=== PATIENT | female | born 1955 | race Caucasian/White ===

== ENCOUNTER → 2016-04-28 | Outpatient (CLI) | payer BC, OTHER | LOC: RAD 09:26 | PROVIDERS: ATTEND Physician Assistant Medical | DX: M25.552 Pain in left hip (principal) | CPT/HCPCS: 73522 ==

== ENCOUNTER → 2016-10-01 | Outpatient (CLI) | payer BC, OTHER ==
--- NOTE | 2016-10-01 14:42 | RADIOLOGY REPORT (SQ) ---
EXAM DESCRIPTION: CT ABD/PELVIS COMBO COMPLETED DATE/TIME: 10/01/2016 12:22 pm REASON FOR STUDY: GROSS HEMATURIA R31.0 GROSS HEMATURIA COMPARISON: None. TECHNIQUE: CT scan of the abdomen and pelvis performed with and without intravenous contrast, and wi thout oral contrast. Contrasted imaging performed helical scanning technique and dynamic intravenous contrast injection. Images reviewed with lung, soft tissue, and bone windows. Reconstructed coronal a nd sagittal MPR images reviewed. Delayed images for evaluation of the urinary system also acquired. A ll images stored on PACS. All CT scanners at this facility use dose modulation, iterative reconstruction, and/or weight based d osing when appropriate to reduce radiation dose to as low as reasonably achievable (ALARA). [facility]: Dose Right [facility]: CareDose [facility]: Dose Right [facility]: Teradose 4D [facility]: Webcom CONTRAST TYPE AND DOSE: contrast/concentration: Isovue 370.00 mg/ml; Total Contrast Delivered: 79.0 ml; Total Saline Delivered: 68.1 ml RENAL FUNCTION: Creatinine 0.7 RADIATION DOSE: Up-to-date CT equipment and radiation dose reduction techniques were employed. CTDIv ol: 9.9 - 10.6 mGy. DLP: 1592 mGy-cm. . LIMITATIONS: None. FINDINGS: NON-CONTRASTED IMAGING: No significant renal or bladder calcifications. No other significa nt organ calcifications. POST-CONTRASTED IMAGING: LOWER CHEST: No significant findings. No nodules or infiltrates. LIVER: Normal size. No masses or dilated ducts. SPLEEN: Normal size. No focal lesions. PANCREAS: No masses. No significant calcifications. No adjacent inflammation or peripancreatic fluid collections. Pancreatic duct not dilated. GALLBLADDER: No identified stones by CT criteria. No inflammatory changes to suggest cholecystitis. ADRENAL GLANDS: No significant masses or asymmetry. RIGHT KIDNEY AND URETER: No solid masses. No significant calcifications. No hydronephrosis or hyd roureter. LEFT KIDNEY AND URETER: No solid masses. No significant calcifications. No hydronephrosis or hydr oureter. AORTA AND VESSELS: No aneurysm. No dissection. Renal arteries, SMA, celiac without stenosis. RETROPERITONEUM: No retroperitoneal adenopathy, hemorrhage or masses. BOWEL AND PERITONEAL CAVITY: No masses or inflammatory changes. No free fluid or peritoneal masses. APPENDIX: Surgically absent. PELVIS: The uterus is absent. The urinary bladder is normal. There is no adnexal mass or fluid elan ection. ABDOMINAL WALL: No masses. No hernias. BONES: Marked degenerative disc changes and spondylosis are present in the lumbar spine. Spinal sten osis is present in the mid lumbar spine. OTHER: No other significant finding. IMPRESSION: 1. No urinary pathology is appreciated. There is no finding that explains hematuria. 2. There are extensive degenerative changes in the lumbar spine as described. TECHNICAL DOCUMENTATION: JOB ID: [id number] Quality ID # [id number]: Final reports with documentation of one or more dose reduction techniques (e.g., Au tomated exposure control, adjustment of the mA and/or kV according to patient size, use of iterative reconstruction technique) 2010 [employer]- All Rights Reserved
== END ==
LOC: RAD 11:19
PROVIDERS: ATTEND Urology
DX: R31.0 Gross hematuria (principal)
CPT/HCPCS: 74178; 82565

== ENCOUNTER 2017-10-06 09:12 | Emergency (ER) | payer BC, OTHER ==
--- NOTE | 2017-10-06 09:46 | ER Document Report ---
ED Medical Screen (RME) - General Chief Complaint: High Blood Pressure Stated Complaint: BLOOD PRESSURE ISSUES Time Seen by Provider: 10/06/17 09:35 Notes: RAPID MEDICAL EVALUATION DISCLOSURE I have seen this patient as part of a Rapid Medical Evaluation and, if applicable, placed any initially appropriate orders. The patient will be seen and fully evaluated, including a full history and physical exam, by a provider ( in Main ED or Fast Track) when a room becomes available. 61-year-old female here with complaints of sweating ongoing since yesterday. She has been sweating constantly and cannot figure out why. She does not have any chest pain shortness of breath lightheadedness nausea vomiting diarrhea abdominal pain. She does have some right low back pain that is chronic and unchanged from baseline. She was at work today and was noted to be sweating by 1 of her coworkers and was sent down to be evaluated. She has no recent changes in medications. Today she noted that her blood pressure was bit elevated in the 170s but has not had any changes in her blood pressure medication. She has not missed any doses of her blood pressure medication. EXAM CTAB RRR TRAVEL OUTSIDE OF THE [place] IN LAST 30 DAYS: No - Related Data Allergies/Adverse Reactions: Penicillins Allergy (Verified 06/25/13 18:29) RASH Sulfa (Sulfonamide Antibiotics) Allergy (Verified 06/25/13 18:29) RASH Past Medical History - Past Medical History Cardiac Medical History: Reports: Hx Hypertension Denies: Hx Heart Attack Pulmonary Medical History: Denies: Hx Asthma Neurological Medical History: Denies: Hx Cerebrovascular Accident, Hx Seizures Endocrine Medical History: Reports: Hx Diabetes Mellitus Type 1, Hx Diabetes Mellitus Type 2 GI Medical History: Reports: Hx Gastroesophageal Reflux Disease. Denies: Hx Hepatitis, Hx Hiatal Hernia, Hx Ulcer Musculoskeltal Medical History: Reports Hx Arthritis Infectious Medical History: Denies: Hx Hepatitis Past Surgical History: Reports: Hx Section, Hx Hysterectomy, Hx Orthopedic Surgery - R hand/carpel tunnel,. Denies: Hx Mastectomy, Hx Open Heart Surgery, Hx Pacemaker - Immunizations Hx Diphtheria, Pertussis, Tetanus Vaccination: Yes Physical Exam - Vital signs Vitals: Temp Pulse Resp BP Pulse Ox 98.3 F 88 17 147/87 H 97 10/06/17 09:32 10/06/17 09:32 10/06/17 09:32 10/06/17 09:32 10/06/17 09:32 Course - Vital Signs Vital signs: Temp Pulse Resp BP Pulse Ox 98.3 F 88 17 147/87 H 97 10/06/17 09:32 10/06/17 09:32 10/06/17 09:32 10/06/17 09:32 10/06/17 09:32 Doctor's Discharge - Discharge Referrals: GABY TOTH MD [Primary Care Provider] - Follow up as needed
[2017-10-06 10:09] LABS: ABSOLUTE BASOPHILS # (AUTO) 0.1 10^3/uL (0.0-0.2); ABSOLUTE EOSINOPHILS # (AUTO) 0.1 10^3/uL (0.0-0.6); ABSOLUTE LYMPHOCYTES (AUTO) 1.2 10^3/uL (0.5-4.7); ABSOLUTE MONOCYTES (AUTO) 0.6 10^3/uL (0.1-1.4); ABSOLUTE NEUT (AUTO) 5.3 10^3/uL (1.7-8.2); BASOPHILS % (AUTO) 1.1 % (0-2); EOSINOPHILS % (AUTO) 1.6 % (0-6); HEMATOCRIT 36.9 % (36.0-47.0); HEMOGLOBIN 12.4 g/dL (12.0-15.5); LYMPHOCYTES % (AUTO) 16.5 % (13-45); MEAN CORPUSCULAR HEMOGLOBIN 27.9 pg (27.0-33.4); MEAN CORPUSCULAR HGB CONC 33.7 g/dL (32.0-36.0); MEAN CORPUSCULAR VOLUME 83 fl (80-97); MONOCYTES % (AUTO) 7.8 % (3-13); PLATELET COUNT 379 10^3/uL (150-450); RED BLOOD COUNT 4.46 10^6/uL (3.72-5.28); RED CELL DISTRIBUTION WIDTH 14.1 % (11.5-14.0); TOTAL CELLS COUNTED % (AUTO) 100 %; WHITE BLOOD COUNT 7.2 10^3/uL (4.0-10.5)
[2017-10-06 10:20] LABS: APPEARANCE,URINE CLOUDY; BILIRUBIN,URINE NEGATIVE (NEGATIVE); GLUCOSE, URINE NEGATIVE (NEGATIVE); KETONES,URINE TRACE mg/dL (NEGATIVE); LEUKOCYTE ESTERASE,URINE LARGE (NEGATIVE); NITRITE,URINE NEGATIVE (NEGATIVE); PROTEIN,URINE 30 mg/dL (NEGATIVE); URINE SPECIFIC GRAVITY 1.024; UROBILINOGEN,URINE NEGATIVE mg/dL (<2.0)
[2017-10-06 10:21] LABS: COLOR,URINE YELLOW
[2017-10-06 10:27] LABS: ALANINE AMINOTRANSFERASE 31 U/L (9-52); ALBUMIN 4.6 g/dL (3.5-5.0); ALKALINE PHOSPHATASE 166 U/L (38-126); ANION GAP 14 (5-19); ASPARTATE AMINO TRANSFERASE 24 U/L (14-36); BILIRUBIN,DIRECT 0.3 mg/dL (0.0-0.4); BILIRUBIN,TOTAL 0.6 mg/dL (0.2-1.3); BLOOD UREA NITROGEN 18 mg/dL (7-20); CARBON DIOXIDE 30 mmol/L (22-30); CHLORIDE 98 mmol/L (98-107); GLUCOSE 294 mg/dL (75-110); PHOSPHORUS 3.7 mg/dL (2.5-4.5); POTASSIUM 5.4 mmol/L (3.6-5.0); SODIUM 141.7 mmol/L (137-145); TOTAL PROTEIN 7.8 g/dL (6.3-8.2)
--- NOTE | 2017-10-06 10:40 | RADIOLOGY REPORT (SQ) ---
EXAM DESCRIPTION: CHEST 2 VIEWS COMPLETED DATE/TIME: 10/06/2017 10:22 am REASON FOR STUDY: diaphoresis high BP COMPARISON: None. EXAM PARAMETERS: NUMBER OF VIEWS: two views TECHNIQUE: Digital Frontal and Lateral radiographic views of the chest acquired. RADIATION DOSE: NA LIMITATIONS: none FINDINGS: LUNGS AND PLEURA: No opacities, masses or pneumothorax. No pleural effusion. MEDIASTINUM AND HILAR STRUCTURES: No masses or contour abnormalities. HEART AND VASCULAR STRUCTURES: Heart normal size. No evidence for failure. BONES: Thoracolumbar scoliosis. HARDWARE: None in the chest. OTHER: No other significant finding. IMPRESSION: NO ACUTE RADIOGRAPHIC FINDING IN THE CHEST. TECHNICAL DOCUMENTATION: JOB ID: [id number] [employer]- All Rights Reserved Reading location - IP/workstation name: [email or web address]
[2017-10-06] MEDS ORDERED: NORMAL SALINE 1000 ML 1,000 ML IV ONE (11:14)
--- NOTE | 2017-10-06 11:19 | ER Document Report ---
ED General - General TRAVEL OUTSIDE OF THE [place] IN LAST 30 DAYS: No <CASI LUCIANO - Last Filed: 10/06/17 13:30> <ILAN HEATH - Last Filed: 10/06/17 13:41> - General Chief Complaint: High Blood Pressure Stated Complaint: BLOOD PRESSURE ISSUES Time Seen by Provider: 10/06/17 09:35 Notes: 61-year-old female here with complaints of sweating ongoing since yesterday. She has been sweating constantly and cannot figure out why. She does not have any chest pain shortness of breath lightheadedness nausea vomiting diarrhea abdominal pain. She does have some right low back pain that is chronic and unchanged from baseline. She was at work today and was noted to be sweating by 1 of her coworkers and was sent down to be evaluated. She has no recent changes in medications. Today she noted that her blood pressure was bit elevated in the 170s but has not had any changes in her blood pressure medication. She has not missed any doses of her blood pressure medication. ( ILAN HEATH) - Related Data Allergies/Adverse Reactions: Penicillins Allergy (Verified 06/25/13 18:29) RASH Sulfa (Sulfonamide Antibiotics) Allergy (Verified 06/25/13 18:29) RASH Past Medical History - Social History Smoking Status: Never Smoker Chew tobacco use (# tins/day): No Frequency of alcohol use: None Drug Abuse: None Family History: Reviewed & Not Pertinent Patient has suicidal ideation: No Patient has homicidal ideation: No - Past Medical History Cardiac Medical History: Reports: Hx Hypertension Denies: Hx Heart Attack Pulmonary Medical History: Denies: Hx Asthma, Hx Tuberculosis Neurological Medical History: Denies: Hx Cerebrovascular Accident, Hx Seizures Endocrine Medical History: Reports: Hx Diabetes Mellitus Type 1, Hx Diabetes Mellitus Type 2 Renal/ Medical History: Denies: Hx Peritoneal Dialysis GI Medical History: Reports: Hx Gastroesophageal Reflux Disease. Denies: Hx Hepatitis, Hx Hiatal Hernia, Hx Ulcer Musculoskeltal Medical History: Reports Hx Arthritis Infectious Medical History: Denies: Hx Hepatitis Past Surgical History: Reports: Hx Section, Hx Hysterectomy, Hx Orthopedic Surgery - R hand/carpel tunnel,. Denies: Hx Mastectomy, Hx Open Heart Surgery, Hx Pacemaker - Immunizations Hx Diphtheria, Pertussis, Tetanus Vaccination: Yes <CASI LUCIANO - Last Filed: 10/06/17 13:30> Review of Systems <CASI LUCIANO - Last Filed: 10/06/17 13:30> <ILAN HEATH - Last Filed: 10/06/17 13:41> - Review of Systems Notes: See history of present illness for pertinent positive review of systems; otherwise all review of systems have been reviewed and are negative (ILAN HEATH) Physical Exam <CASI LUCIANO - Last Filed: 10/06/17 13:30> <ILAN HEATH - Last Filed: 10/06/17 13:41> - Vital signs Vitals: Temp Pulse Resp BP Pulse Ox 98.3 F 88 17 147/87 H 97 10/06/17 09:32 10/06/17 09:32 10/06/17 09:32 10/06/17 09:32 10/06/17 09:32 - Notes Notes: PHYSICAL EXAMINATION: GENERAL: Well-appearing and in no acute distress. HEAD: Atraumatic, normocephalic. EYES: Pupils equal round and reactive to light, extraocular movements intact, sclera anicteric, conjunctiva are normal. ENT: nares patent, oropharynx clear without exudates. Moist mucous membranes. NECK: Normal range of motion, supple without lymphadenopathy LUNGS: CTAB and equal. No wheezes rales or rhonchi. HEART: Regular rate and rhythm without murmurs ABDOMEN: Soft, no tenderness. No facial grimacing/wincing upon palpation. No guarding, no rebound. EXTREMITIES: Normal range of motion, no pitting edema. No cyanosis. No appreciable right lower back TTP NEUROLOGICAL: Cranial nerves grossly intact. Normal sensory/motor exams. PSYCH: Normal mood, normal affect. SKIN: Warm, Dry, normal turgor, no rashes or lesions noted (ILAN HEATH) Course - Laboratory Result Diagrams: 10/06/17 09:45 10/06/17 09:45 <CASI LUCIANO - Last Filed: 10/06/17 13:30> - Laboratory Result Diagrams: 10/06/17 09:45 10/06/17 09:45 <ILAN HEATH - Last Filed: 10/06/17 13:41> - Re-evaluation Re-evalutation: 10/06/17 13:39 MEDICAL DECISION MAKING: Results reviewed there is no leukocytosis hemoglobin is normal Electrolytes show mild hyperglycemia that has improved and now 170s after a bag of fluids Potassium is 5.4 however no significant peaked T waves on the EKG though we will give a single dose of Kayexalate here Urinalysis does show bacteria and leukocyte esterase so I will treat her with Macrobid I discussed the findings with the patient and instructed her follow-up PCP next day or few Patient understands and agrees to the plan of care (ILAN HEATH) - Vital Signs Vital signs: Temp Pulse Resp BP Pulse Ox 98.3 F 87 18 142/72 H 99 10/06/17 09:32 10/06/17 12:58 10/06/17 12:58 10/06/17 12:58 10/06/17 12:58 - Laboratory Laboratory results interpreted by me: 10/06/17 10/06/17 10/06/17 09:45 09:45 09:50 RDW 14.1 H Potassium 5.4 H Glucose 294 H Alkaline Phosphatase 166 H Urine Protein 30 H Urine Ketones TRACE H Ur Leukocyte Esterase LARGE H Urine Ascorbic Acid 40 H Discharge <CASI LUCIANO - Last Filed: 10/06/17 13:30> <ILAN HEATH - Last Filed: 10/06/17 13:41> - Discharge Clinical Impression: Hyperglycemia due to type 1 diabetes mellitus UTI (urinary tract infection) Qualifiers: Urinary tract infection type: acute cystitis Hematuria presence: with hematuria Qualified Code(s): N30.01 - Acute cystitis with hematuria Condition: Stable Disposition: HOME, SELF-CARE Instructions: Nitrofurantoin ([facility]), Urinary Tract Infection ([facility]) Additional Instructions: You were seen in the emergency department at [facility]. The potassium was slightly elevated however he received a one-time dose of medicine to bring it down. Finish the antibiotics and do not skip any doses. Please followup with your primary physician in the next few days for further management /evaluation. Please return to the emergency department for worsening of symptoms or any symptom that you deem to be concerning or life-threatening. Thank you for allowing us to be part of your care. Prescriptions: Nitrofurantoin Monohyd/M-Cryst [Macrobid 100 mg Capsule] 1 tab PO BID #20 capsule Referrals: GABY TOTH MD [NO LOCAL MD] - Follow up in 3-5 days
[2017-10-06 12:59] VITALS: BP 142/72
[2017-10-06] MEDS ORDERED: SODIUM POLYSTYRENE SULFONATE 15 GM/60 ML PO ONE (13:37)
[2017-10-06] MEDS ORDERED: NITROFURANTOIN MONOHYD/M-CRYST 100 MG CAPSULE PO ONE (13:37)
--- NOTE | 2017-10-06 13:47 | ER Document Report ---
Doctor's Note Notes: [facility] LIVE [address] [place] [address] ED General Patient Name: ROSEY RAJPUT Date of : 1955 Patient Status: Emergency Emergency Provider: ILAN HEATH Date: 10/06/17 11:19 Initialization Date: 10/06/17 11:19 ED General - General TRAVEL OUTSIDE OF THE [place] IN LAST 30 DAYS: No <ILAN HEATH - Last Filed: 10/06/17 13:41> - General Chief Complaint: High Blood Pressure Stated Complaint: BLOOD PRESSURE ISSUES Time Seen by Provider: 10/06/17 09:35 Notes: 61-year-old female here with complaints of sweating ongoing since yesterday. She has been sweating constantly and cannot figure out why. She does not have any chest pain shortness of breath lightheadedness nausea vomiting diarrhea abdominal pain. She does have some right low back pain that is chronic and unchanged from baseline. She was at work today and was noted to be sweating by 1 of her coworkers and was sent down to be evaluated. She has no recent changes in medications. Today she noted that her blood pressure was bit elevated in the 170s but has not had any changes in her blood pressure medication. She has not missed any doses of her blood pressure medication. - Related Data Allergies/Adverse Reactions: Penicillins Allergy (Verified 06/25/13 18:29) RASH Sulfa (Sulfonamide Antibiotics) Allergy (Verified 06/25/13 18:29) RASH Past Medical History - Social History Smoking Status: Never Smoker Chew tobacco use (# tins/day): No Frequency of alcohol use: None Drug Abuse: None Family History: Reviewed & Not Pertinent Patient has suicidal ideation: No Patient has homicidal ideation: No - Past Medical History Cardiac Medical History: Reports: Hx Hypertension Denies: Hx Heart Attack Pulmonary Medical History: Denies: Hx Asthma, Hx Tuberculosis Neurological Medical History: Denies: Hx Cerebrovascular Accident, Hx Seizures Endocrine Medical History: Reports: Hx Diabetes Mellitus Type 1, Hx Diabetes Mellitus Type 2 Renal/ Medical History: Denies: Hx Peritoneal Dialysis GI Medical History: Reports: Hx Gastroesophageal Reflux Disease. Denies: Hx Hepatitis, Hx Hiatal Hernia, Hx Ulcer Musculoskeltal Medical History: Reports Hx Arthritis Infectious Medical History: Denies: Hx Hepatitis Past Surgical History: Reports: Hx Section, Hx Hysterectomy, Hx Orthopedic Surgery - R hand/carpel tunnel,. Denies: Hx Mastectomy, Hx Open Heart Surgery, Hx Pacemaker - Immunizations Hx Diphtheria, Pertussis, Tetanus Vaccination: Yes Review of Systems <IVANAILAN - Last Filed: 10/06/17 13:41> - Review of Systems Notes: See history of present illness for pertinent positive review of systems; otherwise all review of systems have been reviewed and are negative Physical Exam <ILAN HEATH - Last Filed: 10/06/17 13:41> - Vital signs Vitals: Temp Pulse Resp BP Pulse Ox 98.3 F 88 17 147/87 H 97 10/06/17 09:32 10/06/17 09:32 10/06/17 09:32 10/06/17 09:32 10/06/17 09:32 - Notes Notes: PHYSICAL EXAMINATION: GENERAL: Well-appearing and in no acute distress. HEAD: Atraumatic, normocephalic. EYES: Pupils equal round and reactive to light, extraocular movements intact, sclera anicteric, conjunctiva are normal. ENT: nares patent, oropharynx clear without exudates. Moist mucous membranes. NECK: Normal range of motion, supple without lymphadenopathy LUNGS: CTAB and equal. No wheezes rales or rhonchi. HEART: Regular rate and rhythm without murmurs ABDOMEN: Soft, no tenderness. No facial grimacing/wincing upon palpation. No guarding, no rebound. EXTREMITIES: Normal range of motion, no pitting edema. No cyanosis. No appreciable right lower back TTP NEUROLOGICAL: Cranial nerves grossly intact. Normal sensory/motor exams. PSYCH: Normal mood, normal affect. SKIN: Warm, Dry, normal turgor, no rashes or lesions noted (ILAN HEATH) Course - Laboratory Result Diagrams: - Re-evaluation Re-evalutation: 10/06/17 13:39 MEDICAL DECISION MAKING: Results reviewed there is no leukocytosis hemoglobin is normal Electrolytes show mild hyperglycemia that has improved and now 170s after a bag of fluids Potassium is 5.4 however no significant peaked T waves on the EKG though we will give a single dose of Kayexalate here Urinalysis does show bacteria and leukocyte esterase so I will treat her with Macrobid I discussed the findings with the patient and instructed her follow-up PCP next day or few Patient understands and agrees to the plan of care (ILAN HEATH) - Vital Signs Vital signs: Temp Pulse Resp BP Pulse Ox 98.3 F 87 18 142/72 H 99 10/06/17 09:32 10/06/17 12:58 10/06/17 12:58 10/06/17 12:58 10/06/17 12:58 - Laboratory Laboratory results interpreted by me: 10/06/17 10/06/17 10/06/17 09:45 09:45 09:50 RDW 14.1 H Potassium 5.4 H Glucose 294 H Alkaline Phosphatase 166 H Urine Protein 30 H Urine Ketones TRACE H Ur Leukocyte Esterase LARGE H Urine Ascorbic Acid 40 H Discharge <ILAN HEATH - Last Filed: 10/06/17 13:41> - Discharge Clinical Impression: Hyperglycemia due to type 1 diabetes mellitus UTI (urinary tract infection) Qualifiers: Urinary tract infection type: acute cystitis Hematuria presence: with hematuria Qualified Code(s): N30.01 - Acute cystitis with hematuria Condition: Stable Disposition: HOME, SELF-CARE Instructions: Nitrofurantoin ([facility]), Urinary Tract Infection ([facility]) Additional Instructions: You were seen in the emergency department at [facility]. The potassium was slightly elevated however he received a one-time dose of medicine to bring it down. Finish the antibiotics and do not skip any doses. Please followup with your primary physician in the next few days for further management /evaluation. Please return to the emergency department for worsening of symptoms or any symptom that you deem to be concerning or life-threatening. Thank you for allowing us to be part of your care. Prescriptions: Nitrofurantoin Monohyd/M-Cryst [Macrobid 100 mg Capsule] 1 tab PO BID #20 capsule Referrals: GABY TOTH MD [NO LOCAL MD] - Follow up in 3-5 days
--- NOTE | 2017-10-07 07:50 | EKG REPORT ---
SEVERITY:- NORMAL ECG - SINUS RHYTHM : Confirmed by: Kaela Patel MD 07-Oct-2017 07:49:58
== END 2017-10-06 14:00 | disposition home or self-care (01) ==
LOC: ER 09:12
DX: E10.65 Type 1 diabetes mellitus with hyperglycemia (principal); N30.01 Acute cystitis with hematuria; M54.5 Low back pain; G89.29 Other chronic pain; I10 Essential (primary) hypertension; Z79.899 Other long term (current) drug therapy
CPT/HCPCS: 93005; 99284; 96360; 36415; 87086; 82962; 83735; 84100; 84443; 85025; 87088; 80053; 81001; 84484; 87186; 83880; 71046; 93010; J7030; J8499